=== PATIENT | male | born 1950 | race Caucasian/White ===

== ENCOUNTER 2016-08-29 21:24 | Emergency (ER) | payer OTHER ==
[~2016-08-29] VITALS: Ht 182.9 cm; Wt 86.9 kg
[2016-08-29 21:40] VITALS: BP 143/83; PULSE 74; RESP 16; TEMP 98.6; O2SAT 96
[2016-08-29] MEDS ORDERED: LEVA500T PO (21:53)
--- NOTE | 2016-08-29 22:11 | PD ---
HPI Chief Complaint: Laceration/Skin Injury Time Seen by Provider: 22:11 Travel History International Travel<30 days: No Contact w/Intl Traveler<30days: No Traveled to known affect area: No History of Present Illness HPI Patient is a 65-year-old male presenting with laceration to the third digit right hand. Approximately 2 hours prior to arrival he was cleaning a grease then cover over his kitchen no when he suffered the laceration. Bleeding was minimal. He did wash the area with soap and water. Last tetanus vaccine greater than 5 years. Denies Weakness, paresthesia and limited range of motion. Denies diabetes, immunocompromise states and history of vascular disease. PFSH Past Medical History Cancer: Yes (SKIN) Medical other: Yes (SINUS) Tetanus Vaccination: > 5 Years Influenza Vaccination: Yes Past Surgical History Tonsillectomy: Yes Other Surgery: Yes Social History Alcohol Use: Yes (~3 X WEEKLY) Tobacco Use: No Substance Use: No Allergies-Medications (Allergen,Severity, Reaction): Coded Allergies: Amoxicillin (Verified Allergy, Unknown, FLU LIKE SYMPTOMS, 08/29/16) Reported Meds & Prescriptions Reported Meds & Active Scripts Active Reported Levaquin (Levofloxacin) 500 Mg Tab 500 Mg PO DAILY Review of Systems Musculoskeletal: No: Limited ROM Skin: Positive Other (laceration per the history of present illness) Neurologic: No: Weakness, Focal Abnormalities, Paresthesia, Sensory Disturbance Hematologic/Lymphatic: No: Easy Bruising Physical Exam Narrative GENERAL: Well-developed and well-nourished adult male in no acute distress. SKIN: Warm and dry. Good turgor without tenting. HEAD: Normocephalic and atraumatic. CARDIOVASCULAR: Regular rate and rhythm without murmurs, rubs, clicks or gallops. Radial pulses 2+ bilaterally. Capillary refill less than 2 seconds distal tip of all fingers of right hand. RESPIRATORY: Clear to auscultation bilaterally with symmetrical rise and fall, no distress or use of accessory muscles. MUSCULOSKELETAL: 6 mm superficial laceration, approximately 1 mm deep, dorsal distal aspect of the third digit hand. Hemostasis achieved. No foreign bodies. No deep structures visible. No gait disturbances. Patient freely moving all four extremities spontaneously. Extremities without clubbing, cyanosis, or edema. No obvious deformities. NEUROLOGIC: CN II-XII grossly intact. Awake and alert. Motor grossly within normal limits. Normal speech. PSYCHIATRIC: Appropriate mood and affect; insight and judgment normal. Data Data Last Documented VS Vital Signs Date Time Temp Pulse Resp B/P Pulse Ox O2 Delivery O2 Flow Rate FiO2 08/29/16 21:40 98.6 74 16 143/83 96 Orders Tetanus/Diphtheria Tox Adult (Tetanus/Di (08/29/16 22:15) MDM Medical Decision Making Medical Screen Exam Complete: Yes Emergency Medical Condition: Yes Differential Diagnosis Finger laceration versus finger abrasion versus contaminated wound Narrative Course Patient is a 65-year-old male with a very minimal superficial laceration of the distal third digit right hand. Tetanus vaccine is updated today. Wound was very minimal and superficial and was irrigated with 4 cc of sterile saline and a Steri-Strip and pressure dressing was applied. This wound did not require suture or primary repair.See discharge paperwork for further instructions. The plan was discussed with the patient who acknowledged their understanding and agreement. Reinforced the follow-up with primary care is critically important. Patient instructed on emergent conditions that should prompt return to ED. Diagnosis Primary Impression: Finger laceration Qualified Code: S61.219A - Finger laceration, initial encounter Patient Instructions: General Instructions, Laceration Without Closure (ED) Additional Instructions: Keep bandage on for 48 hours then change daily When changing bandage wash area with soap and water Avoid swimming or submerging wound in any water(bath, [place], pool, ocean, etc) Take Tylenol or ibuprofen for pain Follow-up with PCP in 2-3 days Return to the ED for any acute worsening of symptoms including swelling, warmth , spreading redness, pustular drainage, fever Disposition: 01 DISCHARGE HOME Condition: Stable Daniel Ramos III Aug 29, 2016 22:11
[2016-08-29] MEDS ORDERED: TETANUS/DIPHTHERIA TOXOID ADULT 0.5 ML VIAL IM ONE (22:15)
== END 2016-08-29 22:39 | disposition home or self-care (01) ==
LOC: PHEFT 21:24
DX: S61.212A Laceration without foreign body of right middle finger without damage to nail, initial encounter (principal); Z23 Encounter for immunization; Z85.828 Personal history of other malignant neoplasm of skin; Z87.09 Personal history of other diseases of the respiratory system; W45.8XXA Other foreign body or object entering through skin, initial encounter; Y93.G1 Activity, food preparation and clean up; Y92.000 Kitchen of unspecified non-institutional (private) residence as the place of occurrence of the external cause
CPT/HCPCS: 90471; 90714